=== PATIENT | female | born 1955 | race American Indian/Alaskan Native ===

== ENCOUNTER 2017-08-06 09:44 | Inpatient (IN) ==
[2017-07-30 16:55] LABS: Basophils # (Auto) 0 K/mcL (0.0-0.3); Basophils % (Auto) 0.3 % (0.0-2.0); Eosinophils # (Auto) 0.1 K/mcL (0.0-0.7); Eosinophils % (Auto) 1.5 % (0.0-7.0); Granulocytes % (Auto) 56.4 % (38.0-78.0); Lymphocytes # (Auto) 2.2 K/mcL (1.5-4.8); Lymphocytes % (Auto) 34.7 % (15.5-49.0); Mean Cell Volume 93.5 fL (80.0-100.0); Mean Corpuscular HGB Conc 34.6 g/dL (31.0-36.0); Mean Corpuscular Hemoglobin 32.4 pg (26.0-34.0); Monocytes # (Auto) 0.5 K/mcL (0.1-0.9); Monocytes % (Auto) 7.1 % (1.0-12.0); Platelet Count 144 K/mcL (140-440); RBC 4.19 M/mcL (4.00-5.20); Red Cell Distribution Width 12.5 % (11.5-14.5)
[2017-07-30 17:26] LABS: Blood Urea Nitrogen 9 mg/dl (8-23)
[2017-07-30 17:52] LABS: Appearance,Urine CLEAR; Bacteria,Urine 0 /hpf (0); Bilirubin,Urine NEG (NEG); Color,Urine YELLOW; Glucose,Urine (UA) NEGATIVE (NEG); Leukocyte Esterase,Urine 25 /uL (NEG); Mucus,Urine FEW /hpf (0); Protein,Urine NEG (NEG); Specific Gravity,Urine 1.014 (1.000-1.035); Urine Blood NEG mg/dL (<0.03); Urine RBC < 1 /hpf (0-1); Urine Squamous Epithelial Cell 1 /hpf (0-4); Urine WBC 4 /hpf (0-4); Urobilinogen,Urine NEG (NEG)
[~2017-08-06 09:44] MED LIST: CELECOXIB 200 MG CAPSULE PO SCH; PREGABALIN 75 MG CAPSULE PO SCH; ceFAZolin 1 GM VIAL IV SCH; oxyCODONE 10 MG TAB.ER.12H PO SCH
[2017-08-06] MEDS ORDERED: fentaNYL 250 MCG/5 ML VIAL IV ONE (11:05)
[2017-08-06] MEDS ORDERED: SUCCINYLCHOLINE 20 MG/ML ML IV ONE (11:05)
[2017-08-06] MEDS ORDERED: LIDOCAINE HCL/PF 100 MG/5 ML SYRINGE IV ONE (11:05)
[2017-08-06] MEDS ORDERED: ONDANSETRON 4 MG/2 ML VIAL IV ONE (11:05)
[2017-08-06] MEDS ORDERED: PHENYLEPHRINE 10 MG/ML VIAL IV ONE (11:05)
[2017-08-06] MEDS ORDERED: TRANEXAMIC ACID 1,000 MG/10 ML VIAL IV ONE ×2 (11:05→12:42)
[2017-08-06] MEDS ORDERED: DEXAMETHASONE 10 MG/ML VIAL IV ONE (11:05)
[2017-08-06] MEDS ORDERED: ROPIVACAINE HCL/PF 20 ML VIAL IJ ONE (11:05)
[2017-08-06] MEDS ORDERED: MIDAZOLAM 2 MG/2 ML VIAL IV ONE (11:05)
[2017-08-06] MEDS ORDERED: GLYCOPYRROLATE 0.2 MG/ML VIAL IV ONE (11:05)
[2017-08-06] MEDS ORDERED: PROPOFOL 200 MG/20 ML VIAL IV ONE (11:05)
[2017-08-06] MEDS ORDERED: GENTAMICIN SULFATE 800 MG/20 ML VIAL IR ONE (11:48)
[2017-08-06] MEDS ORDERED: IPRATROPIUM/ALBUTEROL 3 ML AMPUL.NEB NEB PRN (12:37)
[2017-08-06] MEDS ORDERED: NALOXONE HCL 0.4 MG/ML VIAL IV PRN (12:37)
[2017-08-06] MEDS ORDERED: FLUMAZENIL 0.1 MG/ML ML IV PRN (12:37)
[2017-08-06] MEDS ORDERED: diphenhydrAMINE 50 MG/ML VIAL IV PRN (12:37)
[2017-08-06] MEDS ORDERED: LACTATED RINGERS 250 ML IV PRN (12:37)
[2017-08-06] MEDS ORDERED: ACETAMINOPHEN 1,000 MG/100 ML BOTTLE IV ONE (12:37)
[2017-08-06] MEDS ORDERED: BENZOCAINE/MENTHOL 1 LOZENGE PO PRN ×2 (12:37→12:42)
[2017-08-06] MEDS ORDERED: ONDANSETRON 4 MG/2 ML VIAL IV PRN ×2 (12:37→12:42)
[2017-08-06] MEDS ORDERED: PROMETHAZINE 25 MG/ML VIAL IV PRN (12:37)
[2017-08-06] MEDS ORDERED: fentaNYL 100 MCG/2 ML VIAL IV PRN (12:37)
--- NOTE | 2017-08-06 12:40 | Brief Operative Note ---
Date of procedure: 08/06/17 Pre-op diagnosis: right shoulder osteoarthritis, biceps tendonitis Post-op diagnosis: same Procedure: right total shoulder arthroplasty, biceps tenodesis Grafts/Implants: Yes Anesthesia: GETA Complications: none Surgeon: Ricky Pollock Stone Derrickman And Rigger: Mariann Worthy Estimated blood loss (cc): 150 Specimens Removed/Pathology: none sent Condition: stable Disposition: PACU
[2017-08-06] MEDS ORDERED: ALBUTEROL SULFATE 1 PUFF INHALER IH PRN (12:41)
--- NOTE | 2017-08-06 12:41 | Discharge Summary ---
Ortho Discharge - TSA - Patient Instructions Diet: Regular Diet Activity: non weight bearing Total Shoulder Protocol: Leave immobilizer in place except for bathing and ROM. Abduction pillow. Continue to wear sling until seen by physician. Codman Pendulum : These exercises use momentum produced by your body to move your shoulder joint. Bend your knees and shift your weight to your front leg, then back, allowing your arm to swing in the same directions. Using the same technique, alternately shift your weight between your right and left legs, allowing your arm to swing from side to side. These exercises are also performed in counterclockwise and clockwise circular motions. Typically these exercises are performed several times per day, for a set number repetitions or minutes, such as 20 times in a row or 5 minutes at a time. Dressing Care: May shower in 2 days Patient Education: Shoulder Arthroscopy (DC) - Follow Up Plan Follow Up Appointments: Ricky Pollock MD [Physician] - 08/19/17 1:40 pm Disposition: Home, Self-Care Prognosis: Good Rehab Potential: Good I certify that the patient requires SNF services: No Overall status at discharge: patient is progressing back to baseline
[2017-08-06] MEDS ORDERED: POLYETHYLENE GLYCOL 3350 17 GM PACKET PO PRN (12:42)
[2017-08-06] MEDS ORDERED: MAGNESIUM HYDROXIDE 30 ML ORAL.SUSP PO PRN (12:42)
[2017-08-06] MEDS ORDERED: BISACODYL 10 MG SUPP.RECT PR PRN (12:42)
[2017-08-06] MEDS ORDERED: DEXTROSE 50% 50 ML VIAL IV PRN (12:42)
[2017-08-06] MEDS ORDERED: ONDANSETRON ODT 4 MG TABLET SL PRN (12:42)
[2017-08-06] MEDS ORDERED: HYDROcodone/APAP 10/325MG TABLET PO PRN (12:42)
[2017-08-06] MEDS ORDERED: FLEETS ADULT ENEMA PR PRN (12:42)
[2017-08-06] MEDS ORDERED: METHOCARBAMOL 750 MG TABLET PO PRN (12:42)
[2017-08-06] MEDS ORDERED: DEXTROSE 31 GM ORAL.SUSP PO PRN (12:42)
[2017-08-06] MEDS ORDERED: LACTATED RINGERS 1,000 ML IV SCH (12:45)
--- NOTE | 2017-08-06 13:18 | Operative Note ---
DATE OF OPERATION: 08/06/2017 PREOPERATIVE DIAGNOSES: 1. Right shoulder osteoarthritis. 2. Right shoulder proximal biceps tendonitis. POSTOPERATIVE DIAGNOSES: 1. Right shoulder osteoarthritis. 2. Right shoulder proximal biceps tendonitis. PROCEDURES: 1. Right total shoulder arthroplasty. 2. Right shoulder biceps soft tissue tenodesis. SURGEON: Niesha Pollock M.D. DANCE STUDIO MANAGER SURGEON: Mariann Worthy PA-C ANESTHESIA: General. ESTIMATED BLOOD LOSS: 150 mL COMPLICATIONS: None noted. SPECIMENS REMOVED: None. DRAINS: None. IMPLANTS: CMW2 gentamycin bone cement 20 grams x1, De[employer] anchor peg glenoid, Premieron X-Link polyethylene size 44, De[employer] unite [place] standard stem size 14, De[employer]uy [employer] unite anatomic proximal body 135? size 14 [place], De[employer]uy [employer] unite eccentric humeral head size 48 x 18. INDICATIONS: The patient has had a longstanding history of worsening pain in the shoulder that has failed conservative treatment. Radiographs have confirmed advanced degenerative joint disease. After a long discussion about treatment options, the patient elected to proceed with a total shoulder arthroplasty. The risks and benefits were discussed with the patient in detail including, but not limited to, the risks of anesthesia, problems with the heart or lungs related to anesthesia, infection, compromise or injury to the nerves and blood vessels, deep venous thrombosis, pulmonary embolism, pneumonia, continued pain after surgery, worsening pain or symptoms after surgery, swelling, loss of motion, instability, fracture, arm length discrepancy, and need for repeat surgery. DESCRIPTION OF PROCEDURE: The patient was seen in the pre-anesthesia waiting room where all questions were answered and the correct side and site were identified and marked. The patient was transferred to the operating room and administered the anesthetic and given pre-operative antibiotics. A time-out was then called. The patient was placed in the modified beach chair position with all prominences well padded. The extremity was prepped and draped from the fingers up to the neck. A standard deltopectoral skin incision was created. Dissection was carried down to the deltopectoral groove and the cephalic vein was isolated medially and retracted laterally with the deltoid. Retractors were placed and the coracobrachialis was split up to the coracoacromial ligament allowing retraction of the conjoined tendon. We split the subscapularis 1 cm medial to the bicipital groove and extended the split into the rotator interval. This was tagged for later repair. The biceps was cut and a soft tissue tenodesis was performed into the anterior shoulder with #2 FiberWire. A capsular release was performed in a posterior subperiosteal direction along the humerus. The humeral head was then dislocated. Osteophytes were removed around the humeral neck and a capsular release was performed. Attention was then turned to the glenoid. Retractors were placed for optimal visualization and the labrum was excised in its entirety. A centralizing Steinmann pin was placed just into the posterior inferior quadrant in a standard fashion. We reamed over the pin to remove all the cartilage and get to a good base for the prosthesis. The drill was then placed over for the central peg. The glenoid was sized and surface was inspected to confirm conformity. The template base-plate was used to drill the three additional pegs, anchoring each with the anti-rotation peg. All bleeding was stopped with epinephrine soaked sponges. Next, we then cemented the anchor peg glenoid with DBX bone paste placed around the anchor peg and Palacos cement in the three additional peg holes. We allowed the cement to harden and checked the stability and placement of the glenoid. Attention was then turned back to the humerus. The humeral head was sized and version of the head was matched. We placed the guide evaluating the quadrants and drilled a pin through the center of the head exiting the lateral cortex of the proximal humerus. We then reamed the humeral head with appropriate depth. The bone quality was adequate. The humeral head trial was placed and fit appropriately. The cruciate punch was placed into the drilled canal. The press fit humeral prosthesis was impacted into place. A final check confirmed adequate motion, tension, and stability. We irrigated with 3 liters of antibiotic saline and closed the subscapularis with # 2 FiberWire. We irrigated again and closed the deltopectoral interval with several # 0 Vicryl figure of eight sutures. The subcutaneous layer was closed with 2-0 Vicryl and the skin was closed with 4-0 Monocryl in a subcuticular fashion. A sterile pressure dressing was applied and the patient was placed into an abduction sling. All needle and sponge counts were correct. The patient was transferred to the recovery room in stable condition. OMAR:cesia Job ID: [id number] Doc ID: [id number] Niesha Pollock MD
[2017-08-06] MEDS: KETOROLAC 15 MG/ML VIAL IV PRN ×2 (13:34→22:05)
--- NOTE | 2017-08-06 14:17 | XRay Report ---
CLINICAL INFORMATION: Reason for Exam:Post-OP Total Shoulder COMPARISON: None. FINDINGS: Shoulder prostheses is anatomically aligned. No osseous abnormality. Soft tissue swelling seen as expected IMPRESSION: Negative Interpreted and Authenticated by: Ricky Chan 08/06/17
[2017-08-06] MEDS: metFORMIN 500 MG TABLET PO SCH (17:31)
[2017-08-06] MEDS: 0.9 % SODIUM CHLORIDE 10 ML SYRINGE IV SCH ×2 (17:35→22:06)
[2017-08-06] MEDS: INSULIN LISPRO 1 UNIT/0.01 ML UNIT SQ SCH ×2 (17:35→22:04)
[2017-08-06] MEDS: 0.9 % SODIUM CHLORIDE 1,000 ML IV SCH ×2 (17:36→21:29)
[2017-08-06] MEDS: ceFAZolin 1 GM VIAL IV SCH (19:18)
[2017-08-06] MEDS ORDERED: NORTRIPTYLINE 10 MG CAPSULE PO SCH (21:00)
[2017-08-06] MEDS ORDERED: SENNOSIDES 1 TABLET PO SCH (21:00)
[2017-08-06] MEDS ORDERED: MONTELUKAST 10 MG TABLET PO SCH (21:00)
[2017-08-06] MEDS: LOSARTAN 50 MG TABLET PO SCH (22:04)
[2017-08-06] MEDS: DOCUSATE SODIUM 100 MG CAPSULE PO SCH (22:04)
[2017-08-06] MEDS: DEXTRAN 70 OU SCH (22:05)
[2017-08-06] MEDS: HYPROMELLOSE OU SCH (22:05)
[2017-08-06] MEDS ORDERED: ALBUTEROL SULFATE 2.5 MG/3 ML NEBULIZER ONE (22:48)
[2017-08-06] MEDS: ALBUTEROL SULFATE 2.5 MG/3 ML NEBULIZER NEB PRN (22:52)
[2017-08-07] MEDS: ALBUTEROL SULFATE 2.5 MG/3 ML NEBULIZER NEB PRN ×2 (03:17→06:52)
[2017-08-07] MEDS: ceFAZolin 1 GM VIAL IV SCH (03:17)
[2017-08-07] MEDS ORDERED: ALBUTEROL SULFATE 2.5 MG/3 ML NEBULIZER ONE (03:18)
[2017-08-07] MEDS: 0.9 % SODIUM CHLORIDE 1,000 ML IV SCH (05:53)
[2017-08-07] MEDS: KETOROLAC 15 MG/ML VIAL IV PRN (05:58)
[2017-08-07] MEDS: 0.9 % SODIUM CHLORIDE 10 ML SYRINGE IV SCH ×3 (05:59→21:33)
--- NOTE | 2017-08-07 07:21 | Orthopedic Progress Note ---
Subjective Patient information: Note initiated : 08/07/17 at 7:18 am Service Date, if different from initiated Date: [] Patient: Priya Grijalva 61 y/o F admitted on 08/06/17 for Right Total Shoulder Arthroplasty and Open . Chief Complaint: [POD #1 s/p right TSA Patient doing okay. Reports chest "tightness and pain" but states that it feels like her asthma is acting up. She had two nebulizer treatments yesterday which resolved her symptoms. She also reports coughing up some phlegm last night after her treatments. This morning we gave her another neb treatment and she is coughing up green stuff. She states that it is not her left sided chest. She denies palpitations, dizziness, calf pain, numbness or tingling. She has no other questions at this time.] Objective Vital signs: Vital Signs Temp Pulse Pulse Resp BP Pulse Ox 08/07/17 06:53 86 18 08/07/17 03:34 98.7 F 110 H 16 121/70 93 08/06/17 23:51 100 H 18 08/06/17 22:53 98.6 F 111 H 18 129/76 93 08/06/17 20:00 98.7 F 96 H 18 136/80 93 08/06/17 16:02 80 114/76 95 08/06/17 15:52 85 18 95 08/06/17 15:47 84 119/33 96 08/06/17 15:32 88 121/76 95 08/06/17 15:17 81 129/75 96 08/06/17 15:02 82 125/79 95 08/06/17 14:47 83 124/77 95 08/06/17 14:32 82 127/80 95 08/06/17 14:15 97.1 F 83 17 116/57 95 08/06/17 14:00 97.1 F 80 16 120/58 100 08/06/17 13:45 97.0 F 76 20 122/54 98 08/06/17 13:30 80 16 102/56 100 08/06/17 13:25 81 19 113/71 100 08/06/17 13:20 80 18 122/54 100 08/06/17 13:15 97.4 F 80 18 126/48 100 08/06/17 09:45 98.1 F 76 20 107/61 94 Intake and Output 08/06/17 08/07/17 08/07/17 21:59 05:59 13:59 Intake Total 200 / 200 2130 / 2130 Output Total 1900 / 1900 1450 / 1450 650 / 650 Balance -1700 / -1700 680 / 680 -650 / -650 Intake: IV 1000 / 1000 Sodium Chloride 0.9% 1,000 ml @ 1000 / 1000 125 mls/hr IV .Q8H DRE Rx#: [id number] Oral 1130 / 1130 IV - Manual Only 200 / 200 Output: Void Amount 1900 / 1900 1450 / 1450 650 / 650 Other: Meal yogurt and saltine crackers Percent of Meal Consumed 100% Feeding Ability Independent # Voids 1 2 2 Weight 240 lb Intake & Output: Intake & Output 08/06/17 08/07/17 08/07/17 21:59 05:59 13:59 Intake Total 200 / 200 2130 / 2130 Output Total 1900 / 1900 1450 / 1450 650 / 650 Balance -1700 / -1700 680 / 680 -650 / -650 Weight 240 lb Intake: IV 1000 / 1000 Sodium Chloride 0.9% 1,000 ml @ 1000 / 1000 125 mls/hr IV .Q8H DRE Rx#: [id number] Oral 1130 / 1130 IV - Manual Only 200 / 200 Output: Void Amount 1900 / 1900 1450 / 1450 650 / 650 Other: Meal yogurt and saltine crackers Percent of Meal Consumed 100% Feeding Ability Independent # Voids 1 2 2 Incision: Yes healing, No draining, No red, No swollen, No inflamed, Yes clean and dry Incision clean and dry: Yes Dressing: Yes clean, Yes dry, Yes intact, Yes splint in place Weight bearing status: non Range of motion: full wrist and hand Neurological exam IM: Yes alert, Yes oriented X3, Yes motor sensory intact, Yes neurovascular intact Extremities exam IM: Yes Foot pink and warm, Yes neurovascular intact - Periperhal Pulses Peripheral pulses: 2+: radial (L), radial (R) - Diagnostic Results Shoulder x-ray: image reviewed - Labs CBC & BMP: 07/30/17 14:55 07/30/17 14:54 Labs: 08/07/17 07/30/17 06:21 14:55 Hgb Pending 13.6 Hct Pending 39.2 Assessment and Plan (1) Osteoarthritis, shoulder POD #1 s/p right TSA: -pain control -nonweightbearing in sling -dermabond protocol/keep covered with gauze outside of shower -continue neb treatment -for chest tightness: I will consult hospitalist -continue neb treatments this am as needed -pain control: changed to oxycodone from [place] due to liver problems Status: Acute
[2017-08-07] MEDS ORDERED: oxyCODONE HCL 5 MG TABLET PO PRN ×2 (07:26→07:47)
[2017-08-07] MEDS ORDERED: LEVOTHYROXINE SODIUM 112 MCG TABLET PO SCH (07:30)
[2017-08-07] MEDS ORDERED: glipiZIDE 5 MG TABLET PO SCH (07:30)
[2017-08-07] MEDS ORDERED: OMEPRAZOLE 20 MG CAPSULE PO SCH (07:30)
[2017-08-07] MEDS: INSULIN LISPRO 1 UNIT/0.01 ML UNIT SQ SCH ×5 (07:53→21:32)
[2017-08-07] MEDS: metFORMIN 500 MG TABLET PO SCH (07:54)
[2017-08-07] MEDS ORDERED: LIPASE/PROTEASE/AMYLASE 1 CAP CAPSULE PO SCH (08:00)
[2017-08-07 08:42] LABS: Creatine Kinase 237 IU/L (24-170); Creatine Kinase MB 3.7 ng/ml (0-2.9)
[2017-08-07] MEDS: DEXTRAN 70 OU SCH ×2 (08:44→21:33)
[2017-08-07] MEDS: LOSARTAN 50 MG TABLET PO SCH ×2 (08:44→21:31)
[2017-08-07] MEDS: HYPROMELLOSE OU SCH ×2 (08:44→21:33)
[2017-08-07] MEDS: DOCUSATE SODIUM 100 MG CAPSULE PO SCH ×2 (08:45→21:31)
--- NOTE | 2017-08-07 08:47 | XRay Report ---
CLINICAL INFORMATION: Postop chest pain COMPARISON: 10/28/2010 FINDINGS: Cardiomegaly is unchanged. Mediastinum and pulmonary vessels are normal for technique. There is minor atelectasis in the right infrahilar region. No effusion. IMPRESSION: Minor atelectasis in the right infrahilar region Mild stable cardiomegaly. Please consider the possibility of pulmonary embolus in this situation Interpreted and Authenticated by: Ricky Chan 08/07/17
[2017-08-07] MEDS ORDERED: FLUTICASONE PROPIONATE SPRAY.NAS NS SCH (09:00)
[2017-08-07] MEDS ORDERED: INSULIN GLARGINE, HUMAN 1 UNIT/0.01 ML SQ SCH (09:00)
[2017-08-07] MEDS ORDERED: ASPIRIN 81 MG TAB.CHEW PO SCH (09:00)
[2017-08-07] MEDS ORDERED: methylPREDNISolone SOD SUCC 40 MG/ML VIAL IV ONE (09:30)
--- NOTE | 2017-08-07 09:46 | Internal Medicine Consult Note ---
Medical - CN: HPI - Data of Consult Consult date: 08/07/17 Requesting Physician: Ricky Pollock Primary Care Provider: Renzo Fenton Family Provider: Renzo Fenton - Consult Narrative Reason for consult: chest pain/shortness of breath History of present illness: Ms. Grijalva is a 61 year old F with a history of DM type 2/hypertension was admitted by orthopedics for right shoulder surgery. Postoperatively the patient was noted to be short of breath along with complaints of substernal chest pain. Hospitalist service consulted At the time of evaluation patient is markedly short of breath and unable to talk in full sentences. She rates pain as 6 out of 10 worsening with inspiration substernal pressure-like without associated diaphoresis dizziness lightheadedness or vision changes. She denies prior similar episodes. She has associated cough with yellow productive sputum. She denies recent URI symptoms or sick contacts. She is up-to-date on flu and pneumonia vaccine. She denies prior history of myocardial infarction hospitalization or cardiac procedures. Notably she has recurrent chronic gallstone pancreatitis for which she underwent stenting at [place] in 2016 and subsequently stent removal in 2017. She she does not think her current pain is similar to her prior pancreatitis episode. She does not endorses smoking or alcoholism. She denies history of asthma. She denies fever chills, sweating, diarrhea, dysuria, weight loss or rash. Review of systems 10 point review of systems was performed and is negative except for ones discussed above CC: Ricky Pollock Medical - CN: PMH Medical history: DM type II Asthma Joint disease History of recurrent pancreatitis Degenerative joint disease Hypothyroidism Hypertension GERD Anxiety disorder Pulmonary tuberculosis with residual fibrosis Family history: reviewed and not pertinent Pertinent family history: Mother of heart attack at age 36 History of coronary artery disease in family Cerebral vascular accident grandfather Pancreatic cancer father Social history: Quit smoking in 30s-recreational only Follows up with 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 No history of alcoholism 2 GM 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 Resides in [facility] Smoking status: Former smoker Drug use: none Alcohol use: none Medical - CN: Meds Home Medications Medication Instructions Recorded Confirmed Type Albuterol Sulfate [Proair Hfa] 1 - 2 puff IH DAILYP PRN 07/30/17 08/06/17 History Aspirin [Adult Low Dose Aspirin EC] 81 mg PO DAILY 07/30/17 08/06/17 History Cyanocobalamin (Vitamin B-12) 1,000 mcg SL DAILY 07/30/17 08/06/17 History [Vitamin B-12] Dextran 70/Hypromellose 1 drop OU BID 07/30/17 08/06/17 History [Artificial Tears] Ergocalciferol (Vitamin D2) 50,000 unit PO Q2W 07/30/17 07/30/17 History [Vitamin D2] Ferrous Sulfate [Iron] 325 mg PO TIDCC 07/30/17 08/06/17 History Fluticasone Propionate [Flonase] 2 spray NS DAILY 07/30/17 08/06/17 History Insulin Detemir [Levemir] 15 unit SQ DAILY 07/30/17 08/06/17 History Levothyroxine Sodium [Synthroid] 112 mcg PO ACB 07/30/17 08/06/17 History Lipase/Protease/Amylase [Creon Dr 2 cap PO TIDCC 07/30/17 08/06/17 History 24,000 Units Capsule] Magnesium Oxide 3 tab PO HS 07/30/17 08/06/17 History Montelukast Sodium [Singulair] 10 mg PO HS 07/30/17 08/06/17 History Multivit,Ther Iron,Ca,FA & Min 1 tab PO DAILY 07/30/17 08/06/17 History [Multivitamin W/Minerals] Nortriptyline [Pamelor] 30 mg PO HS 07/30/17 08/06/17 History Omeprazole [PriLOSEC] 20 mg PO ACB 07/30/17 08/06/17 History Valsartan [Diovan] 80 mg PO BID 07/30/17 08/06/17 History glipiZIDE [Glucotrol] 5 mg PO DAILY 07/30/17 08/06/17 History metFORMIN [Glucophage] 1,000 mg PO BIDCC 07/30/17 08/06/17 History oxyCODONE HCL [Oxycodone HCl] 1 - 2 tab PO Q4H PRN #60 tab 08/07/17 Rx Allergies Allergy/AdvReac Type Severity Reaction Status Date / Time codeine AdvReac Mild Vomiting Verified 08/06/17 12:51 meperidine [From Demerol] AdvReac Mild Vomiting Verified 08/06/17 12:51 Medical - CN: Exam - Constitutional Vitals: Temp Pulse Resp BP Pulse Ox 98.7 F 110 H 16 114/71 92 08/07/17 07:22 08/07/17 07:22 08/07/17 07:22 08/07/17 07:22 08/07/17 07:22 General appearance: moderate distress (SOB), obese Exam: Anxious but alert Labored breathing Abdomen symmetrical No ear discharge Oral cavity dry Neck no lymphadenopathy S1 and S2 regular rhythm Tachycardia Diminished breath sounds bases late inspiratory crackles right posterior chest Right shoulder postoperative dressing Abdomen soft nontender Lower extremity no cyanosis clubbing Skin no suspicious lesion Psych alert cooperative but anxious Neuro nonfocal Medical - CN: Result - Labs CBC & Chem 7: 08/08/17 04:28 08/07/17 07:49 Labs: Short CBC 08/07/17 Range/Units 06:21 Hgb 12.7 (12.0-15.0) g/dL Hct 37.9 (36.0-48.0) % Cardiac Enzymes 08/07/17 08/07/17 Range/Units 07:49 07:49 Total Creatine Kinase 237 H (24-170) IU/L CK-MB (CK-2) 3.7 H (0-2.9) ng/ml Troponin T < 0.01 (0-0.03) ng/ml Medical - CN: A/P (1) Chest pain Status: Acute Assessment and plan: * Postop day 2 right shoulder surgery-managed by orthopedics Hospitalist consult * Chest pain-unclear etiology, rule out PE/ACS. Chest x-ray/CT angiogram/ cardiac enzymes series. Transfer to telemetry. Check lipase * Shortness of breath-CT/echo. History of asthma. Continue steroids/inhaled bronchodilators * History of pancreatitis check lipase * DM type II continue basal prandial insulin * 5000 on thyroxine * GERD on PPI * Hypertension on [place] Plan * Serial cardiac enzymes * Echo/CT angiogram chest * CBC with manual differential/lipase/procalcitonin/CMP * IV/inhaled steroids/bronchodilators * Transfer to telemetry
[2017-08-07 10:14] LABS: ALT/SGPT 53 U/l (0-40); Albumin 4.2 gm/dL (3.2-5.2); Albumin/Globulin Ratio 1.5 (1.0-2.3); Alkaline Phosphatase 102 U/L (39-117); Bilirubin,Direct < 0.2 mg/dL (0.0-0.3); Blood Urea Nitrogen 12 mg/dl (8-23); Gamma Glutamyl Transpeptidase 59 U/L (5-36); Lipase 36 U/L (7-60); Uric Acid 4.8 mg/dL (2.5-8.0)
[2017-08-07 10:48] LABS: Mean Cell Volume 94.3 fL (80.0-100.0); Mean Corpuscular HGB Conc 33.8 g/dL (31.0-36.0); Mean Corpuscular Hemoglobin 31.9 pg (26.0-34.0); Platelet Count 169 K/mcL (140-440); RBC 3.96 M/mcL (4.00-5.20); Red Cell Distribution Width 12.4 % (11.5-14.5)
[2017-08-07] MEDS ORDERED: IPRATROPIUM/ALBUTEROL 3 ML AMPUL.NEB NEB SCH (11:00)
[2017-08-07 11:30] LABS: Lymphocytes % 14 % (15-49); Monocytes % (Manual) 7 % (1-12); Platelet Estimate NORMAL (NORMAL); RBC Morphology NORMAL (NORMAL); Segmented Neutrophils % 79 % (38-78)
[2017-08-07] MEDS ORDERED: ALBUTEROL SULFATE 1 PUFF INHALER IH PRN (11:41)
[2017-08-07] MEDS ORDERED: METHOCARBAMOL 750 MG TABLET PO PRN (11:41)
[2017-08-07] MEDS ORDERED: MAGNESIUM HYDROXIDE 30 ML ORAL.SUSP PO PRN (11:41)
[2017-08-07] MEDS ORDERED: ALBUTEROL SULFATE 2.5 MG/3 ML NEBULIZER NEB PRN (11:41)
[2017-08-07] MEDS ORDERED: DEXTROSE 50% 50 ML VIAL IV PRN ×2 (11:41)
[2017-08-07] MEDS ORDERED: ONDANSETRON 4 MG/2 ML VIAL IV PRN (11:41)
[2017-08-07] MEDS ORDERED: ONDANSETRON ODT 4 MG TABLET SL PRN (11:41)
[2017-08-07] MEDS ORDERED: DEXTROSE 31 GM ORAL.SUSP PO PRN ×2 (11:41)
[2017-08-07] MEDS ORDERED: BENZOCAINE/MENTHOL 1 LOZENGE PO PRN (11:41)
[2017-08-07] MEDS ORDERED: BISACODYL 10 MG SUPP.RECT PR PRN (11:41)
[2017-08-07] MEDS ORDERED: POLYETHYLENE GLYCOL 3350 17 GM PACKET PO PRN (11:41)
[2017-08-07] MEDS: LIPASE/PROTEASE/AMYLASE 1 CAP CAPSULE PO SCH ×2 (12:39→17:10)
[2017-08-07] MEDS: oxyCODONE HCL 5 MG TABLET PO PRN ×2 (14:05→21:31)
[2017-08-07] MEDS ORDERED: IOPAMIDOL 100 ML BOTTLE IV ONE (15:03)
[2017-08-07] MEDS: IPRATROPIUM/ALBUTEROL 3 ML AMPUL.NEB NEB SCH ×3 (15:20→23:12)
--- NOTE | 2017-08-07 16:25 | Cat Scan Report ---
CLINICAL INFORMATION: Chest pain and shortness of breath COMPARISON: None. TECHNIQUE: 80 cc of Isovue-300 were injected intravenously, and 25 seconds later, 0.625 mm helical slices were obtained from the lung apices through the bases. Following reconstruction, 2.5 mm sagittal, coronal and axial reformations were processed and reviewed at lung, mediastinal and bone windows. 7 mm axial MIPS were also obtained to optimize pulmonary nodule detection. The exam was performed using radiation dose optimization techniques including, but not limited to, automated exposure control, adjustment of the mA and/or kV according to patient size and use of iterative reconstruction technique. FINDINGS: Pulmonary parenchymal windows are mildly elevated lung volumes and mild wall thickening the bronchi suggesting bronchitis. There is scattered atelectasis and/or scarring in the periphery of both lower lobes, right middle lobe and lingula. No jama infiltrates. Pleural spaces are normal. Pulmonary arteries are normal in contour and caliber without evidence of embolus centrally. The thoracic aorta is normal in contour and caliber. The heart is mildly enlarged. Esophagus is normal. There is a 10 mm short axis lymph node in the anterior pretracheal region, but no evidence of jama adenopathy. Bones and soft tissues the chest wall are normal IMPRESSION: Mild chronic bronchitis and minimal scattered scarring and/or atelectasis in the periphery lower lobes, right middle lobe and lingula. Interpreted and Authenticated by: Ricky Chan 08/07/17
[2017-08-07 16:37] LABS: Creatine Kinase MB 4.5 ng/ml (0-2.9)
[2017-08-07 16:38] LABS: Creatine Kinase 297 IU/L (24-170)
[2017-08-07] MEDS ORDERED: INSULIN LISPRO 1 UNIT/0.01 ML UNIT SQ SCH (17:00)
[2017-08-07] MEDS ORDERED: NORTRIPTYLINE 10 MG CAPSULE PO SCH (21:00)
[2017-08-07] MEDS ORDERED: BUDESONIDE 0.5 MG/2 ML AMPUL.NEB NEB SCH ×2 (21:00)
[2017-08-07] MEDS ORDERED: MONTELUKAST 10 MG TABLET PO SCH (21:00)
[2017-08-07] MEDS ORDERED: SENNOSIDES 1 TABLET PO SCH (21:00)
[2017-08-08] MEDS: oxyCODONE HCL 5 MG TABLET PO PRN (04:50)
[2017-08-08] MEDS: 0.9 % SODIUM CHLORIDE 10 ML SYRINGE IV SCH (04:50)
[2017-08-08] MEDS: IPRATROPIUM/ALBUTEROL 3 ML AMPUL.NEB NEB SCH ×2 (04:53→07:09)
--- NOTE | 2017-08-08 06:58 | Orthopedic Progress Note ---
Subjective Patient information: Note initiated : 08/08/17 at 6:56 am Service Date, if different from initiated Date: [] Patient: Priya Grijalva 61 y/o F admitted on 08/06/17 for Right Total Shoulder Arthroplasty and Open . Chief Complaint: [] Interval history: doing better today. Objective Vital signs: Vital Signs Temp Pulse Pulse Resp BP Pulse Ox 08/08/17 04:00 98.0 F 84 20 124/74 96 08/08/17 00:00 97.9 F 111 H 20 136/82 96 08/07/17 23:13 101 H 16 08/07/17 20:00 97.7 F 110 H 20 141/77 96 08/07/17 19:10 86 16 96 08/07/17 16:00 97.8 F 111 H 18 134/63 94 08/07/17 15:21 86 18 08/07/17 12:00 97.8 F 112 H 18 125/67 94 08/07/17 10:51 86 16 08/07/17 07:22 98.7 F 110 H 16 114/71 92 Intake and Output 08/07/17 08/08/17 08/08/17 21:59 05:59 13:59 Intake Total 240 / 240 890 / 890 Output Total 650 / 650 Balance -410 / -410 890 / 890 Intake: Oral 240 / 240 890 / 890 Output: Void Amount 650 / 650 Other: Meal Dinner Percent of Meal Consumed 75% Feeding Ability Independent # Voids 1 Weight 240 lb Intake & Output: Intake & Output 08/07/17 08/08/17 08/08/17 21:59 05:59 13:59 Intake Total 240 / 240 890 / 890 Output Total 650 / 650 Balance -410 / -410 890 / 890 Weight 240 lb Intake: Oral 240 / 240 890 / 890 Output: Void Amount 650 / 650 Other: Meal Dinner Percent of Meal Consumed 75% Feeding Ability Independent # Voids 1 Incision: Yes healing Incision clean and dry: Yes Dressing: Yes clean, Yes dry, Yes intact Weight bearing status: non Neurological exam IM: Yes alert, Yes normal gait, Yes oriented X3, Yes motor sensory intact, Yes neurovascular intact Extremities exam IM: No calf tenderness, Yes Foot pink and warm, Yes neurovascular intact - Labs CBC & BMP: 08/08/17 04:28 08/07/17 07:49 Labs: 08/08/17 08/07/17 08/07/17 04:28 10:12 06:21 Hgb 11.3 L 12.6 12.7 Hct 33.2 L 37.4 37.9 07/30/17 14:55 Hgb 13.6 Hct 39.2 Assessment and Plan (1) Osteoarthritis, shoulder pod 2 s/p tsa and biceps tenodesis nwb pain control pt home when cleared by medicine Status: Acute
[2017-08-08] MEDS: LIPASE/PROTEASE/AMYLASE 1 CAP CAPSULE PO SCH (07:29)
[2017-08-08] MEDS ORDERED: OMEPRAZOLE 20 MG CAPSULE PO SCH (07:30)
[2017-08-08] MEDS ORDERED: LEVOTHYROXINE SODIUM 112 MCG TABLET PO SCH (07:30)
[2017-08-08] MEDS: INSULIN LISPRO 1 UNIT/0.01 ML UNIT SQ SCH ×2 (07:47→11:19)
[2017-08-08] MEDS: DOCUSATE SODIUM 100 MG CAPSULE PO SCH (08:42)
[2017-08-08] MEDS: LOSARTAN 50 MG TABLET PO SCH (08:43)
[2017-08-08] MEDS: HYPROMELLOSE OU SCH (08:43)
[2017-08-08] MEDS: DEXTRAN 70 OU SCH (08:43)
[2017-08-08] MEDS ORDERED: FLUTICASONE PROPIONATE SPRAY.NAS NS SCH (09:00)
[2017-08-08] MEDS ORDERED: INSULIN GLARGINE, HUMAN 1 UNIT/0.01 ML SQ SCH (09:00)
[2017-08-08] MEDS ORDERED: ASPIRIN 81 MG TAB.CHEW PO SCH (09:00)
--- NOTE | 2017-08-08 10:41 | Internal Med Progress Note ---
Medical - PN: Subj Patient information: Note initiated : 08/08/17 at 10:38 am Service Date, if different from initiated Date: [] Patient: Priya Grijalva a 61 y/o F admitted on 08/06/17 for Right Total Shoulder Arthroplasty and Open . Chief Complaint: [] Interval history: Ms. Grijalva is a 61 year old F with a history of DM type 2/hypertension was admitted by orthopedics for right shoulder surgery. Postoperatively the patient was noted to be short of breath along with complaints of substernal chest pain. Hospitalist service consulted At the time of evaluation patient is markedly short of breath and unable to talk in full sentences. She rates pain as 6 out of 10 worsening with inspiration substernal pressure-like without associated diaphoresis dizziness lightheadedness or vision changes. She denies prior similar episodes. She has associated cough with yellow productive sputum. She denies recent URI symptoms or sick contacts. She is up-to-date on flu and pneumonia vaccine. She denies prior history of myocardial infarction hospitalization or cardiac procedures. Notably she has recurrent chronic gallstone pancreatitis for which she underwent stenting at [place] in 2016 and subsequently stent removal in 2017. She she does not think her current pain is similar to her prior pancreatitis episode. She does not endorses smoking or alcoholism. She denies history of asthma. She denies fever chills, sweating, diarrhea, dysuria, weight loss or rash. 08/08-patient did well overnight. Breathing back to baseline. Able to ambulate without significant shortness of breath. CT angiogram chest negative. Cardiac enzymes serial negative. EKG unremarkable. Patient is symptom-free. Can be discharge as per orthopedic recommendations and follow-up with orthopedics and primary care physician. No further recommendations from hospitalist service. - Constitutional Vitals: Vital Signs Temp Pulse Resp BP Pulse Ox 98.6 F 69 20 128/74 95 08/08/17 07:14 08/08/17 07:14 08/08/17 07:14 08/08/17 07:14 08/08/17 07:14 Period Temp Pulse Resp BP Sys/Ordonez Pulse Ox Last 24 Hr 97.7 F-98.6 F 69-112 16-20 124-141/63-82 94-96 Intake and Output 06/20/18 06/21/18 06/21/18 21:59 05:59 13:59 Intake Total 240 / 240 890 / 890 660 / 660 Output Total 650 / 650 Balance -410 / -410 890 / 890 660 / 660 Weight 240 lb Intake & Output: Intake & Output 08/07/17 08/08/17 08/08/17 21:59 05:59 13:59 Intake Total 240 / 240 890 / 890 660 / 660 Output Total 650 / 650 Balance -410 / -410 890 / 890 660 / 660 Weight 240 lb Intake: Oral 240 / 240 890 / 890 660 / 660 Output: Void Amount 650 / 650 Other: Meal Dinner Breakfast Percent of Meal Consumed 75% 100% Feeding Ability Independent Independent # Voids 1 2 Exam: Alert oriented nonlabored breathing slightly anxious Right shoulder postsurgical dressing Ambulating Medical - PN: Obj Da - Labs CBC & Chem 7: 08/08/17 04:28 08/07/17 07:49 Labs: Abnormal Lab Results 08/08/17 08/07/17 08/07/17 04:28 15:48 10:12 WBC 13.5 H RBC 3.96 L Hgb 11.3 L Hct 33.2 L Seg Neutrophils % 79 H Lymphocytes % 14 L Carbon Dioxide Anion Gap Glucose GGT AST ALT Total Creatine Kinase 297 H CK-MB (CK-2) 4.5 H 08/07/17 08/07/17 07:49 07:49 WBC RBC Hgb Hct Seg Neutrophils % Lymphocytes % Carbon Dioxide 19 L Anion Gap 19.0 H Glucose 241 H GGT 59 H AST 47 H ALT 53 H Total Creatine Kinase 237 H CK-MB (CK-2) 3.7 H Meds: Medications Albuterol Sulfate (Ventolin) 1 - 2 puff IH DAILYP PRN PRN Reason: Shortness Of Breath Albuterol Sulfate (Ventolin) 2.5 mg NEB Q4HP PRN PRN Reason: Shortness Of Breath Albuterol/Ipratropium (Duoneb) 3 ml NEB Q4HRT [facility] Last Admin: 08/08/17 07:09 Dose: 3 ml Lipase/Protease/Amylase (Creon) 2 cap PO TIDCC [facility] Last Admin: 08/08/17 07:29 Dose: 2 cap Aspirin (Aspirin) 81 mg PO DAILY [facility] Last Admin: 08/08/17 08:43 Dose: 81 mg Bisacodyl (Dulcolax) 10 mg GA Q2-3DAYS PRN PRN Reason: Constipation Budesonide (Pulmicort) 0.5 mg NEB Q12 [facility] Last Admin: 08/07/17 19:09 Dose: 0.5 mg Dextrose (Dextrose 50%) 0 ml IV UD PRN PRN Reason: Hypoglycemia Dextrose (Dextrose 50%) 0 ml IV UD PRN PRN Reason: Hypoglycemia Diagnostic Test (Pha) (Accu-Chek) 1 each FS [facility] Last Admin: 08/08/17 07:25 Dose: 1 each Docusate Sodium (Colace) 100 mg PO BID [facility] Last Admin: 08/08/17 08:42 Dose: 100 mg Fluticasone Propionate (Flonase) 2 spray NS DAILY [facility] Last Admin: 08/08/17 08:43 Dose: Not Given Glucose (Insta-Glucose) 15 gm PO PRN PRN PRN Reason: Hypoglycemia Glucose (Insta-Glucose) 15 gm PO PRN PRN PRN Reason: Hypoglycemia Insulin Glargine (Lantus) 15 unit SQ DAILY [facility] Last Admin: 08/08/17 08:43 Dose: 15 unit Insulin Human Lispro (Humalog) 0 unit SQ [facility] PRN Reason: Protocol Last Admin: 08/08/17 07:47 Dose: 1 unit Levothyroxine Sodium (Synthroid) 112 mcg PO ACB [facility] Last Admin: 08/08/17 07:29 Dose: 112 mcg Losartan Potassium (Cozaar) 50 mg PO BID [facility] Last Admin: 08/08/17 08:43 Dose: 50 mg Magnesium Hydroxide (Milk Of Magnesia) 30 ml PO BIDP PRN PRN Reason: Constipation Methocarbamol (Robaxin) 750 mg PO Q6HP PRN PRN Reason: Muscle Spasm Montelukast Sodium (Singular) 10 mg PO [facility] Last Admin: 08/07/17 21:31 Dose: 10 mg Nortriptyline HCl (Pamelor) 30 mg PO [facility] Last Admin: 08/07/17 21:31 Dose: 30 mg Omeprazole (Prilosec) 20 mg PO ACB [facility] Last Admin: 08/08/17 07:29 Dose: 20 mg Ondansetron HCl (Zofran) 4 mg IV Q4HP PRN PRN Reason: Nausea And Vomiting Ondansetron HCl (Zofran Odt) 4 mg SL Q4HP PRN PRN Reason: Nausea And Vomiting Oxycodone HCl (Roxicodone) 0 mg PO Q4HP PRN PRN Reason: PAIN LEVEL 3-6 Last Admin: 08/08/17 04:50 Dose: 5 mg Dextran 70/Hypromellose [ Artificial Tears] Eye Drops 1 dose OU BID [facility] Last Admin: 08/08/17 08:43 Dose: 1 dose Polyethylene Glycol (Miralax) 17 gm PO DAILYP PRN PRN Reason: Constipation Senna (Senokot) 2 tab PO HS [facility] Last Admin: 08/07/17 21:31 Dose: 2 tab Sodium Chloride (Saline Flush) 10 ml IV Q8 [facility] Last Admin: 08/08/17 04:50 Dose: 10 ml Throat Lozenges (Cepacol) 1 lozenge PO PRN PRN PRN Reason: Sore Throat Medical - PN: A/P - Time Spent With Patient Total time spent is greater than 50% in coordination of care (as documented) at patient's floor/unit and/or counseling patient: (1) Chest pain Status: Acute Assessment and plan: * Postop day 3 right shoulder surgery-managed by orthopedics likely discharged today. Hospitalist consult * Chest negative workup including CT angiogram chest/serial cardiac enzymes. Symptoms fully resolved. Lipase negative. * Shortness of breath- secondary to reactive airway disease flare responding to bronchodilators and steroids. Imaging negative. Echo pending. Patient can be discharged today with follow-up advice with PCP and orthopedics. Patient is at baseline. * History of pancreatitis -no acute flare. Normal lipase. * DM type II remains stable on home dose basal prandial insulin * Hypothyroidism on thyroxine * GERD managed on PPI * Hypertension managed on losartan Current Visit: Yes Medical - PN: Qual - VTE Deep Vein Thrombosis/Pulmonary Embolism Present on Admission: No
== END 2017-08-08 11:46 | disposition home or self-care (01) | DRG 483 ==
LOC: MEDSUR 09:44
PROVIDERS: ADMIT Orthopaedic Surgery Sports Medicine; ATTEND Orthopaedic Surgery Sports Medicine